=== PATIENT | male | born 1950 | race Caucasian/White ===

== ENCOUNTER 2021-03-07 23:46 | Inpatient (IN) | payer MEDICARE, OTHER ==
[~2021-03-07] VITALS: Ht 185.4 cm; Wt 84.0 kg
[~2021-03-07 23:46] MED LIST: HYDR-4353 PO
[2021-03-07] MEDS ORDERED: ondansetron/PF 4mg/2ml inj IV STA (23:51)
[2021-03-07] MEDS ORDERED: morphine 4 MG/ML inj SYRINge IV ONE (23:55)
[2021-03-07] MEDS ORDERED: morphine 4 MG/ML inj SYRINge ONE (23:57)
[2021-03-07] MEDS ORDERED: NO HOME MEDS (23:58)
[2021-03-08] VITALS (18 sets, daily range): BP systolic 90–130; BP diastolic 66–89
--- NOTE | 2021-03-08 | NUR ---
4mg zofran IV given. 4mg morphine IV and 4000 units heparin IV bolus given.
--- NOTE | 2021-03-08 00:02 | NUR ---
pt took [place] one hour ago.
[2021-03-08] MEDS ORDERED: heparin 10,000 units/1 ML INJ IV ONE (00:05)
--- NOTE | 2021-03-08 00:06 | NUR ---
polish compounder at bedside pt shaved, two IVs established, NS maintainance fluids running at 20cc/hr. personal items in bag and with pt
[2021-03-08 00:14] LABS: BASOPHILS # (AUTO) 0.1 X10'3 (0-0.2); BASOPHILS % (AUTO) 0.9 % (0-1); EOSINOPHILS # (AUTO) 0.2 X10'3 (0-0.9); EOSINOPHILS % (AUTO) 1.9 % (0-6); HEMATOCRIT 44.6 % (42.0-52.0); HEMOGLOBIN 14.9 g/dl (14.0-17.9); LYMPHOCYTES # (AUTO) 3.8 X10'3 (1.1-4.8); MEAN CORPUSCULAR HEMOGLOBIN 29.7 PG (27.0-31.0); MEAN CORPUSCULAR HGB CONC 33.4 g/dL (33.0-36.5); MEAN PLATELET VOLUME 9.1 FL (7.4-10.4); MONOCYTES # (AUTO) 0.8 X10'3 (0-0.9); MONOCYTES % (AUTO) 9.4 % (2-12); NEUTROPHILS # (AUTO) 3.3 X10'3 (1.8-7.7); NEUTROPHILS % (AUTO) 40.8 % (42-75); PLATELET COUNT 217 X10'3 (140-440); RED BLOOD COUNT 5.01 X10'6 (4.70-6.10); RED CELL DISTRIBUTION WIDTH 14.2 % (11.5-14.5); WHITE BLOOD COUNT 8.1 X10'3 (4.5-11.0)
[2021-03-08] MEDS ORDERED: LIDOcaine 1% (10mg/ml)w/preservative injection 20ml MDV ONE (00:14)
[2021-03-08] MEDS ORDERED: fentaNYL/PF 50MCG/1 ML 2ML syringe ONE (00:14)
[2021-03-08] MEDS ORDERED: iohexol 350 MG/1 ML 200ml bottle ONE (00:14)
[2021-03-08] MEDS ORDERED: midazolam 1 mg/ML 2ml injection ONE (00:14)
[2021-03-08] MEDS ORDERED: heparin 1,000unit/ml 10ml vial 10 ML ONE (00:14)
[2021-03-08] MEDS ORDERED: iohexol 350 MG/ML 50ML vial IV ONE (00:15)
--- NOTE | 2021-03-08 00:20 | NUR ---
lab intern RN at bedside to transport pt.
[2021-03-08 00:37] LABS: ALANINE AMINOTRANSFERASE 29 U/L (12-78); ALBUMIN 4.1 G/DL (3.4-5.0); ALBUMIN/GLOBULIN RATIO 1.2 (1.1-1.5); ALKALINE PHOSPHATASE 56 IU/L (46-116); ANION GAP 11 (8-16); ASPARTATE AMINO TRANSFERASE 28 U/L (10-37); BILIRUBIN,TOTAL 0.8 MG/DL (0.1-1.0); BLOOD UREA NITROGEN 31 MG/DL (7-18); CALCIUM 9.1 MG/DL (8.5-10.1); CHLORIDE 104 MMOL/L (99-107); CREATININE 1.41 MG/DL (0.60-1.10); GLUCOSE 141 MG/DL (70-104); POTASSIUM 3.2 MMOL/L (3.5-5.1); SODIUM 142 MMOL/L (135-145); TOTAL CARBON DIOXIDE 26.7 MMOL/L (24-32); TOTAL PROTEIN 7.6 G/DL (6.4-8.2); eGFR 50 ML/MIN
[2021-03-08] MEDS ORDERED: ticagrelor 90mg tablet ONE (01:04)
--- NOTE | 2021-03-08 01:15 | NUR ---
Patient in room MED 310. I have received report from Primitivo TENORIO- clinical laboratory scientist and had the opportunity to ask questions and assume patient care.
[2021-03-08] MEDS: normal saline 1000ml 1,000 ML IV SCH ×2 (01:35→21:35)
[2021-03-08] MEDS ORDERED: normal saline 1000ml 1,000 ML IV ONE (01:35)
[2021-03-08] MEDS ORDERED: aspirin 81mg tablet.DR PO ONE (01:58)
[2021-03-08] MEDS ORDERED: acetaminophen 325mg tablet PO PRN (02:00)
[2021-03-08] MEDS ORDERED: magnesium hydroxide 30ml (MOM) UD suspension PO PRN (02:00)
[2021-03-08] MEDS ORDERED: proCHLORperazine 10 MG/2 ml inj IV PRN (02:00)
[2021-03-08] MEDS ORDERED: HYDROcodone/acetaminophen 10/325mg tab PO PRN ×2 (02:05)
--- NOTE | 2021-03-08 02:51 | NUR ---
patient right groin site started to bleed through the dressing. spoke to dr. martins, ok to put on femstop. pulses felt. no new orders
--- NOTE | 2021-03-08 06:21 | NUR ---
Patient in room MED 310. I have received report from brayden jacobson and had the opportunity to ask questions and assume patient care.
--- NOTE | 2021-03-08 06:25 | NUR ---
Problems reprioritized. Patient report given, questions answered & plan of care reviewed with Merlyn TENORIO.
--- NOTE | 2021-03-08 07:00 | NUR ---
femstop removed, right groin site clear,dressing dry and intact
[2021-03-08] MEDS ORDERED: heparin 10,000 units/1 ML INJ ONE (08:00)
[2021-03-08 08:14] LABS: ALANINE AMINOTRANSFERASE 98 U/L (12-78); ALBUMIN 3.3 G/DL (3.4-5.0); ANION GAP 12 (8-16); ASPARTATE AMINO TRANSFERASE 617 U/L (10-37); BILIRUBIN,TOTAL 0.8 MG/DL (0.1-1.0); BLOOD UREA NITROGEN 27 MG/DL (7-18); BUN/CREATININE RATIO 30.7 (5.4-32.0); CALCIUM 7.9 MG/DL (8.5-10.1); CHLORIDE 106 MMOL/L (99-107); CHOL/HDL RATIO 3.6 (0.00-4.99); CHOLESTEROL 166 MG/DL (0-200); CREATININE 0.88 MG/DL (0.60-1.10); GLUCOSE 134 MG/DL (70-104); HDL CHOLESTEROL 46 MG/DL (35-60); LDL CHOLESTEROL 104 MG/DL (50-100); MAGNESIUM 2.1 MG/DL (1.5-2.4); SODIUM 140 MMOL/L (135-145); TOTAL CARBON DIOXIDE 22.4 MMOL/L (24-32); TOTAL PROTEIN 6.5 G/DL (6.4-8.2); TRIGLYCERIDES 61 MG/DL (20-135); eGFR 86 ML/MIN
[2021-03-08 08:35] LABS: ALKALINE PHOSPHATASE 51 IU/L (46-116)
[2021-03-08] MEDS: ticagrelor 90mg tablet PO SCH ×2 (09:56→20:06)
[2021-03-08] MEDS: aspirin 81mg tablet.DR PO SCH (09:56)
[2021-03-08] MEDS: lisinopril 2.5mg tablet PO SCH (09:56)
[2021-03-08] MEDS: atorvastatin 20mg tablet PO SCH (09:57)
[2021-03-08] MEDS: docusate sod 100mg capsule PO SCH ×2 (09:57→20:06)
[2021-03-08] MEDS: metoprolol succinate 25mg (24-HOUR) SR. Tablet PO SCH (11:34)
[2021-03-08] MEDS ORDERED: PERFLUTREN PROTEIN-A MICROSPHR (Optison) 0.22 MG/ML 3ML VIAL IV ONE (12:15)
[2021-03-08] MEDS: enoxaparin 40mg/0.4ml syringe SQ SCH (12:52)
--- NOTE | 2021-03-08 18:22 | NUR ---
Problems reprioritized. Patient report given, questions answered & plan of care reviewed with brayden borrego.
[2021-03-08] MEDS ORDERED: potassium Cl 20 mEq SR tablet PO SCH (20:00)
[2021-03-08] MEDS: potassium Cl 20 mEq SR tablet PO SCH (20:06)
[2021-03-09 02:00] VITALS: BP 104/66
[2021-03-09 06:00] VITALS: BP 97/67
--- NOTE | 2021-03-09 06:23 | NUR ---
Patient in room MED 310. I have received report from brayden borrego and had the opportunity to ask questions and assume patient care.
--- NOTE | 2021-03-09 06:34 | NUR ---
Problems reprioritized. Patient report given, questions answered & plan of care reviewed with Isabella.
[2021-03-09] MEDS: enoxaparin 40mg/0.4ml syringe SQ SCH (08:00)
[2021-03-09] MEDS: ticagrelor 90mg tablet PO SCH (10:03)
[2021-03-09] MEDS: aspirin 81mg tablet.DR PO SCH (10:03)
[2021-03-09] MEDS: lisinopril 2.5mg tablet PO SCH (10:03)
[2021-03-09] MEDS: docusate sod 100mg capsule PO SCH (10:04)
[2021-03-09] MEDS: metoprolol succinate 25mg (24-HOUR) SR. Tablet PO SCH (10:04)
[2021-03-09] MEDS: potassium Cl 20 mEq SR tablet PO SCH (10:04)
[2021-03-09] MEDS: atorvastatin 20mg tablet PO SCH (10:04)
[2021-03-09 11:00] VITALS: BP 102/64
[2021-03-09] MEDS ORDERED: ATOR40TA71 PO (11:05)
[2021-03-09] MEDS ORDERED: ASPI-1265 PO (11:18)
[2021-03-09] MEDS ORDERED: METO-539 PO (11:18)
[2021-03-09] MEDS ORDERED: APIX5TAB3 PO (11:18)
[2021-03-09] MEDS ORDERED: TICA90TA2 PO (11:33)
--- NOTE | 2021-03-09 12:15 | NUR ---
reviewed all discharge instructions, including f/u appt with dr. martins in 2 weeks, SL dc'd from [facility] and left hand, both sites clear all prescriptions called into [facility] on [address], information provided pt dc'd via w/c with all belongings
--- NOTE | 2021-03-11 13:04 | NUR ---
CASE MANAGEMENT DISCHARGE FOLLOW UP: Spoke with pt via telephone. Reports that he is doing fine, admits to a small amount of bruising at inguinal cath site; denies CP, SOB, swelling, edema, bleeding, fever/chills. Verbalizes understanding of s/sx requiring further evaluation/emergent assistance. Verbalizes understanding of medications. Verbalizes compliance with MD discharge instructions. Verbalizes understanding of the importance in making/keeping follow-up appointments, states has left a message for Dr Muñiz's office, awaiting callback. States no further questions/concerns at this time.
== END 2021-03-09 12:12 | disposition home or self-care (01) | DRG 246 ==
LOC: ER 23:46 → MED 3N 03-08 01:00 → UNDOADMIN 03-08 01:00
PROVIDERS: ADMIT Internal Medicine Cardiovascular Disease; ATTEND Internal Medicine Cardiovascular Disease
PROC: 4A023N7 Measurement of Cardiac Sampling and Pressure, Left Heart, Percutaneous Approach (ICD-10-PCS; principal; 2021-03-08)
PROC: 027034Z Dilation of Coronary Artery, One Artery with Drug-eluting Intraluminal Device, Percutaneous Approach (ICD-10-PCS; 2021-03-08)
PROC: B2111ZZ Fluoroscopy of Multiple Coronary Arteries using Low Osmolar Contrast (ICD-10-PCS; 2021-03-08)
PROC: B2151ZZ Fluoroscopy of Left Heart using Low Osmolar Contrast (ICD-10-PCS; 2021-03-08)
DX: I21.09 ST elevation (STEMI) myocardial infarction involving other coronary artery of anterior wall (principal); I50.21 Acute systolic (congestive) heart failure; I47.2 Ventricular tachycardia; I25.10 Atherosclerotic heart disease of native coronary artery without angina pectoris; K21.9 Gastro-esophageal reflux disease without esophagitis; I25.5 Ischemic cardiomyopathy; I49.3 Ventricular premature depolarization
CPT/HCPCS: 93306; 93458; 96365; 96375; 99291; C9606; 36415; 71045; 80053; 80061; 83735; 83880; 84484; 85025; 87081; 93005; 99152; 99153; A4620; A6258; C1725; C1751; C1760; C1769; C1874; C1894; G0378; J1644; J1650; J2001; J2250; J2270; J2405; J3010; J7030; Q9956; Q9967

== ENCOUNTER 2023-02-17 09:19 | Day surgery (SDC) | payer MEDICARE, OTHER ==
[~2023-02-17] VITALS: Ht 185.4 cm; Wt 86.0 kg
[2023-02-17] VITALS (8 sets, daily range): BP systolic 110–150; BP diastolic 44–98
[~2023-02-17 09:19] MED LIST changes: +APIX5TAB3 PO; +ASPI-1265 PO; +ATOR40TA71 PO; -HYDR-4353 PO; +METO-539 PO; +NO HOME MEDS; +TICA90TA2 PO
[2023-02-17] MEDS ORDERED: normal saline 500ml IV soln 500 ML IV SCH (09:50)
[2023-02-17] MEDS ORDERED: cefazolin 2gm/D5W 100mL 100 ML IV ONE (09:55)
[2023-02-17] MEDS ORDERED: VANCOMYCIN 1,500MG in normal saline IV soln 300 ML IV ONE (10:00)
[2023-02-17] MEDS ORDERED: AMIO200T61 PO (10:14)
[2023-02-17] MEDS ORDERED: EZET10TA48 PO (10:14)
[2023-02-17] MEDS ORDERED: ALLERTEC PO (10:14)
[2023-02-17] MEDS ORDERED: ASPI-1265 PO (10:14)
[2023-02-17 10:40] LABS: ALBUMIN 4.1 G/DL (3.4-5.0); ANION GAP 6 (8-16); BLOOD UREA NITROGEN 19 MG/DL (7-18); BUN/CREATININE RATIO 16.5 (10.0-20.0); CALCIUM 8.6 MG/DL (8.5-10.1); CHLORIDE 107 MMOL/L (99-107); CREATININE 1.15 MG/DL (0.60-1.10); GLUCOSE 101 MG/DL (70-104); MAGNESIUM 2.1 MG/DL (1.5-2.4); POTASSIUM 4.7 MMOL/L (3.5-5.1); SODIUM 140 MMOL/L (135-145); eGFR 63 ML/MIN
[2023-02-17 11:01] LABS: BASOPHILS % (AUTO) 0.6 % (0-1); EOSINOPHILS # (AUTO) 0.1 X10'3 (0-0.9); EOSINOPHILS % (AUTO) 2.5 % (0-6); HEMATOCRIT 46.1 % (42.0-52.0); HEMOGLOBIN 15.4 g/dl (14.0-17.9); LYMPHOCYTES # (AUTO) 1.2 X10'3 (1.1-4.8); LYMPHOCYTES % (AUTO) 24.7 % (21-51); MEAN CORPUSCULAR HEMOGLOBIN 30.6 PG (27.0-31.0); MEAN CORPUSCULAR HGB CONC 33.4 g/dL (33.0-36.5); MEAN CORPUSCULAR VOLUME 91.4 FL (78-98); MEAN PLATELET VOLUME 10.5 FL (7.4-10.4); MONOCYTES # (AUTO) 0.4 X10'3 (0-0.9); MONOCYTES % (AUTO) 7.6 % (2-12); NEUTROPHILS % (AUTO) 64.6 % (42-75); PLATELET COUNT 144 X10'3 (140-440); RED BLOOD COUNT 5.05 X10'6 (4.70-6.10); RED CELL DISTRIBUTION WIDTH 15.3 % (11.5-14.5); WHITE BLOOD COUNT 4.7 X10'3 (4.5-11.0)
[2023-02-17] MEDS ORDERED: midazolam 1 mg/ML 2ml injection ONE ×3 (13:01→15:28)
[2023-02-17] MEDS ORDERED: LIDOCAINE 2%/EPI 1:100,000 inj. Multi-dose 20 ML VIAL ONE (13:01)
[2023-02-17] MEDS ORDERED: vancomycin 1,000mg inj ONE (13:01)
[2023-02-17] MEDS ORDERED: fentaNYL/PF 50MCG/1 ML 2ML syringe ONE ×2 (13:01→16:10)
[2023-02-17] MEDS ORDERED: iohexol 350MG/ML 100ml bottle IV ONE (13:12)
[2023-02-17] MEDS ORDERED: LIDOcaine 1% 30ml preserv. free vial ONE (14:00)
[2023-02-17] MEDS ORDERED: iohexol 350 MG/ML 50ML vial IV ONE (14:23)
== END 2023-02-17 18:45 | disposition home or self-care (01) ==
LOC: SSTAY O 09:19
PROVIDERS: ATTEND Internal Medicine Cardiovascular Disease
DX: I49.5 Sick sinus syndrome (principal); I25.10 Atherosclerotic heart disease of native coronary artery without angina pectoris; I25.5 Ischemic cardiomyopathy; I25.2 Old myocardial infarction; Z79.899 Other long term (current) drug therapy; Z79.82 Long term (current) use of aspirin; Z95.5 Presence of coronary angioplasty implant and graft; Z72.89 Other problems related to lifestyle; Z88.8 Allergy status to other drugs, medicaments and biological substances
CPT/HCPCS: 33208; 36415; 71045; 80048; 83735; 85025; 85610; 93005; 93454; 99152; 99153; C1760; C1785; C1894; C1898; J1644; J2250; J3010; J3370; J3490; J7030; J7040; Q9967; A6258; A6402; A6449

== ENCOUNTER 2023-07-20 05:13 | Day surgery (SDC) | payer MEDICARE, OTHER ==
[~2023-07-20] VITALS: Ht 185.4 cm; Wt 89.5 kg
[2023-07-20] VITALS (11 sets, daily range): BP systolic 110–141; BP diastolic 73–93; PULSE 50; RESP 9–16; TEMP 97.5; O2SAT 95–98
[~2023-07-20 05:13] MED LIST changes: +ALLERTEC PO; +AMI200T PO; -APIX5TAB3 PO; -ATOR40TA71 PO; +EZET10TA48 PO; +LIDOcaine 1% 30ml preserv. free vial ONE; -METO-539 PO; -NO HOME MEDS; -TICA90TA2 PO; +fentaNYL/PF 50MCG/1 ML 2ML syringe ONE; +heparin 1,000 UNITS/NS 500ml 0 ML ONE; +heparin 1,000unit/ml 10ml vial 0 ML ONE; +iohexol 350MG/ML 100ml bottle IV ONE; +midazolam 1 mg/ML 2ml injection ONE; +nitroGLYCERIN 500mcg/5mL D5W 5 ML IV ONE; +verapamil 2.5 mg/ml inj IV ONE
[2023-07-20] MEDS ORDERED: iohexol 350MG/ML 100ml bottle IV ONE ×2 (05:44→07:00)
[2023-07-20] MEDS ORDERED: midazolam 1 mg/ML 2ml injection ONE (05:44)
[2023-07-20] MEDS ORDERED: fentaNYL/PF 50MCG/1 ML 2ML syringe ONE (05:44)
[2023-07-20] MEDS ORDERED: verapamil 2.5 mg/ml inj IV ONE (05:44)
[2023-07-20] MEDS ORDERED: iohexol 350 MG/ML 50ML vial IV ONE (05:44)
[2023-07-20] MEDS ORDERED: LIDOcaine 1% (10mg/ml) 2ml vial ONE (05:44)
[2023-07-20] MEDS ORDERED: heparin 1,000unit/ml 10ml vial 10 ML ONE (05:44)
[2023-07-20] MEDS ORDERED: RED600CA2 (05:51)
[2023-07-20] MEDS ORDERED: TADA5TAB13 PO (05:51)
[2023-07-20] MEDS ORDERED: EVOL140P3 SUBCUT (05:51)
[2023-07-20] MEDS ORDERED: METO-395 PO (05:51)
[2023-07-20] MEDS ORDERED: RIVA20TA PO (05:51)
[2023-07-20 06:11] LABS: BASOPHILS % (AUTO) 0.7 % (0-1); EOSINOPHILS # (AUTO) 0.1 X10'3 (0-0.9); EOSINOPHILS % (AUTO) 2.4 % (0-6); HEMATOCRIT 44.5 % (42.0-52.0); LYMPHOCYTES # (AUTO) 1.3 X10'3 (1.1-4.8); LYMPHOCYTES % (AUTO) 29.5 % (21-51); MEAN CORPUSCULAR HEMOGLOBIN 30.9 PG (27.0-31.0); MEAN CORPUSCULAR HGB CONC 33.7 g/dL (33.0-36.5); MEAN CORPUSCULAR VOLUME 91.7 FL (78-98); MEAN PLATELET VOLUME 9.1 FL (7.4-10.4); MONOCYTES # (AUTO) 0.4 X10'3 (0-0.9); MONOCYTES % (AUTO) 7.8 % (2-12); NEUTROPHILS # (AUTO) 2.7 X10'3 (1.8-7.7); NEUTROPHILS % (AUTO) 59.6 % (42-75); PLATELET COUNT 168 X10'3 (140-440); RED BLOOD COUNT 4.85 X10'6 (4.70-6.10); RED CELL DISTRIBUTION WIDTH 14.8 % (11.5-14.5); WHITE BLOOD COUNT 4.5 X10'3 (4.5-11.0)
[2023-07-20 06:17] LABS: ALBUMIN 3.9 G/DL (3.4-5.0); ANION GAP 7 (8-16); APTT 28 SECONDS (22-32); BLOOD UREA NITROGEN 24 MG/DL (7-18); BUN/CREATININE RATIO 18.9 (10.0-20.0); CHLORIDE 105 MMOL/L (99-107); CREATININE 1.27 MG/DL (0.60-1.10); GLUCOSE 109 MG/DL (70-104); MAGNESIUM 2.2 MG/DL (1.5-2.4); POTASSIUM 4.2 MMOL/L (3.5-5.1); PROTHROMBIN TIME 10.4 SECONDS (9.0-12.0); SODIUM 139 MMOL/L (135-145); eGFR 56 ML/MIN
[2023-07-20] MEDS ORDERED: diphenhydrAMINE 25mg capsule PO PRN (06:25)
[2023-07-20] MEDS ORDERED: normal saline 1,000 ML IV SCH (06:25)
[2023-07-20] MEDS ORDERED: nitroGLYCERIN 500mcg/5mL D5W 5 ML IV ONE (06:27)
[2023-07-20] MEDS ORDERED: clopidogrel 300mg tablet ONE (07:22)
[2023-07-20] MEDS ORDERED: normal saline 1000ml 1,000 ML IV SCH (08:00)
== END 2023-07-20 11:05 | disposition home or self-care (01) ==
LOC: SSTAY O 05:13
PROVIDERS: ATTEND Internal Medicine Cardiovascular Disease
DX: I25.10 Atherosclerotic heart disease of native coronary artery without angina pectoris (principal); I25.2 Old myocardial infarction; I25.5 Ischemic cardiomyopathy; Z88.8 Allergy status to other drugs, medicaments and biological substances; Z79.899 Other long term (current) drug therapy; Z79.01 Long term (current) use of anticoagulants; Z72.89 Other problems related to lifestyle
CPT/HCPCS: 36415; 80048; 83735; 85025; 85610; 85730; 93005; 93458; 99152; 99153; A6258; C1874; C9600; J1644; J2250; J3010; J3490; J7030; Q9967; A6402; C1725; C1751; C1769; C1894

== ENCOUNTER 2023-12-07 06:10 | Day surgery (SDC) | payer MEDICARE, OTHER ==
[2023-12-07] VITALS (8 sets, daily range): BP systolic 113–139; BP diastolic 79–100; PULSE 60–70; RESP 12–16; TEMP 97.8; O2SAT 96–97
[~2023-12-07] VITALS: Ht 185.4 cm; Wt 87.6 kg
[~2023-12-07 06:10] MED LIST changes: -ALLERTEC PO; -ASPI-1265 PO; +CLOP75TA34 PO; +EVOL140P3 SUBCUT; -LIDOcaine 1% 30ml preserv. free vial ONE; +METO-395 PO; +NITR0.4T48 PO; +RIVA20TA PO; +cefazolin 2gm/D5W 100mL 100 ML IV ONE; -fentaNYL/PF 50MCG/1 ML 2ML syringe ONE; -heparin 1,000 UNITS/NS 500ml 0 ML ONE; -heparin 1,000unit/ml 10ml vial 0 ML ONE; -iohexol 350MG/ML 100ml bottle IV ONE; -midazolam 1 mg/ML 2ml injection ONE; -nitroGLYCERIN 500mcg/5mL D5W 5 ML IV ONE; -verapamil 2.5 mg/ml inj IV ONE
[2023-12-07] MEDS ORDERED: IBUP-2417 PO (06:43)
[2023-12-07] MEDS ORDERED: midazolam 1 mg/ML 2ml injection ONE ×5 (06:47→08:42)
[2023-12-07] MEDS ORDERED: iohexol 350 MG/ML 50ML vial IV ONE (06:47)
[2023-12-07] MEDS ORDERED: LIDOCAINE 2%/EPI 1:100,000 inj. Multi-dose 20 ML VIAL ONE (06:47)
[2023-12-07] MEDS ORDERED: fentaNYL/PF 50MCG/1 ML 2ML syringe ONE (06:47)
[2023-12-07] MEDS ORDERED: vancomycin 1,000mg inj ONE (06:48)
[2023-12-07] MEDS: normal saline 1000ml 1,000 ML IV SCH (06:56)
[2023-12-07 07:00] LABS: BASOPHILS % (AUTO) 0.6 % (0-1); EOSINOPHILS # (AUTO) 0.2 X10'3 (0-0.9); EOSINOPHILS % (AUTO) 2.9 % (0-6); HEMATOCRIT 44.4 % (42.0-52.0); HEMOGLOBIN 14.7 g/dl (14.0-17.9); LYMPHOCYTES # (AUTO) 1.6 X10'3 (1.1-4.8); LYMPHOCYTES % (AUTO) 29.7 % (21-51); MEAN CORPUSCULAR HEMOGLOBIN 30.8 PG (27.0-31.0); MEAN CORPUSCULAR HGB CONC 33.1 g/dL (33.0-36.5); MEAN CORPUSCULAR VOLUME 92.9 FL (78-98); MEAN PLATELET VOLUME 9.1 FL (7.4-10.4); MONOCYTES # (AUTO) 0.4 X10'3 (0-0.9); MONOCYTES % (AUTO) 7.4 % (2-12); NEUTROPHILS # (AUTO) 3.2 X10'3 (1.8-7.7); NEUTROPHILS % (AUTO) 59.4 % (42-75); PLATELET COUNT 190 X10'3 (140-440); RED BLOOD COUNT 4.78 X10'6 (4.70-6.10); RED CELL DISTRIBUTION WIDTH 14.7 % (11.5-14.5); WHITE BLOOD COUNT 5.4 X10'3 (4.5-11.0)
[2023-12-07 07:21] LABS: ANION GAP 5 (8-16); BLOOD UREA NITROGEN 19 MG/DL (7-18); BUN/CREATININE RATIO 15.7 (10.0-20.0); CALCIUM 8.2 MG/DL (8.5-10.1); CHLORIDE 107 MMOL/L (99-107); CREATININE 1.21 MG/DL (0.60-1.10); GLUCOSE 99 MG/DL (70-104); POTASSIUM 4.3 MMOL/L (3.5-5.1); SODIUM 144 MMOL/L (135-145); TOTAL CARBON DIOXIDE 32.3 MMOL/L (24-32); eCRCL 62 ML/MIN; eGFR 59 ML/MIN
[2023-12-07 07:23] LABS: PROTHROMBIN TIME 10.3 SECONDS (9.0-12.0)
[2023-12-07] MEDS: vancomycin 1,500 MG in NS 300ml IV soln IV ONE (09:20)
[2023-12-07] MEDS ORDERED: HYDROcodone/acetaminophen 5mg/325mg tablet PO PRN (09:45)
[2023-12-07] MEDS ORDERED: HYDROcodone/acetaminophen 10/325mg tab PO PRN (09:45)
== END 2023-12-07 12:10 | disposition home or self-care (01) ==
LOC: CATH LAB 06:10
PROVIDERS: ATTEND Internal Medicine Cardiovascular Disease
DX: I25.5 Ischemic cardiomyopathy (principal); I42.0 Dilated cardiomyopathy; I50.22 Chronic systolic (congestive) heart failure; I25.119 Atherosclerotic heart disease of native coronary artery with unspecified angina pectoris; Z79.01 Long term (current) use of anticoagulants; Z95.0 Presence of cardiac pacemaker; Z88.8 Allergy status to other drugs, medicaments and biological substances; Z79.899 Other long term (current) drug therapy
CPT/HCPCS: 33233; 33235; 33249; 36415; 71045; 80048; 85025; 85610; 93005; 99152; 99153; C1769; C1882; C1895; C1898; C1900; J0690; J2250; J3010; J3370; J7030; Q9967; 96360; A4565; A6258; A6449